=== PATIENT | male | born 1980 | race Two or more races ===

== ENCOUNTER 2022-05-21 17:22 | Emergency (ER) | payer OTHER ==
[~2022-05-21] VITALS: Ht 167.6 cm; Wt 99.8 kg
[2022-05-21] MEDS ORDERED: LOSARTAN-HCTZ1 EAC1 PO (18:27)
[2022-05-21] MEDS ORDERED: ATORVASTATIN CA40 MG PO (18:28)
[2022-05-21] MEDS ORDERED: VITAMIN D3 COM1 EACH PO (18:28)
[2022-05-21] MEDS ORDERED: FENOFIBRATE54 MG PO (18:28)
[2022-05-21] MEDS ORDERED: AMLODIPINE BESYL5 MG PO (18:28)
[2022-05-21] MEDS ORDERED: ZITHROMAX500 MG PO (22:00)
[2022-05-21] MEDS ORDERED: DEXAMETHASONE4 MG PO (22:02)
== END 2022-05-21 22:26 | disposition home or self-care (01) ==
LOC: ER 17:22
DX: B34.9 Viral infection, unspecified (principal); J45.909 Unspecified asthma, uncomplicated; I10 Essential (primary) hypertension; Z88.0 Allergy status to penicillin; Z20.822 Contact with and (suspected) exposure to COVID-19

== ENCOUNTER 2024-12-27 23:09 | Emergency (ER) | payer OTHER ==
[~2024-12-27] VITALS: Ht 175.3 cm; Wt 99.8 kg
[~2024-12-27 23:09] MED LIST: AMLODIPINE BESYL5 MG PO; ATORVASTATIN CA40 MG PO; DEXAMETHASONE4 MG PO; FENOFIBRATE54 MG PO; LOSARTAN-HCTZ1 EAC1 PO; VITAMIN D3 COM1 EACH PO; ZITHROMAX500 MG PO
[2024-12-28] MEDS ORDERED: FAMOTIDINE/PF 20 MG/2 ML VIAL IV PUSH STA (00:44)
[2024-12-28] MEDS ORDERED: PROMETHAZINE HCL 50 MG/ML AMPUL IM STA (00:44)
[2024-12-28] MEDS ORDERED: 0.9 % SODIUM CHLORIDE 1,000 ML IV ONE (00:45)
[2024-12-28] MEDS ORDERED: FAMOTIDINE/PF 20 MG/2 ML VIAL ONE (00:45)
[2024-12-28] MEDS ORDERED: PROMETHAZINE HCL 50 MG/ML AMPUL IM ONE (00:45)
[2024-12-28 01:38] LABS: BASO % 0.6 % (0.1-1.2); EOS # 0.01 (0.04-0.54); EOS % 0.1 % (0.7-7.0); LYMPH # 2.68 (1.18-3.74); LYMPH % 18.5 % (19.3-53.1); MEAN PLATELET VOLUME 10.50 fl (9.4-12.4); MONO # 0.97 (0.24-0.82); MONO % 6.7 % (4.7-12.5); NEUT # 10.67 (1.56-6.13); NEUT % 73.8 % (34.0-71.1); RED CELL DISTRIBUTION WIDTH 12.7 % (11.6-14.4)
[2024-12-28 01:51] LABS: URINE APPEARANCE Clear; URINE BILIRRUBIN Negative (NEGATIVE); URINE BLOOD Negative; URINE COLOR Yellow; URINE KETONE Negative (NEGATIVE); URINE LEUKOCYTE Negative; URINE NITRATE Negative; URINE PROTEIN 30 (NEGATIVE); URINE UROBILINOGEN 0.2 E.U./dl
[2024-12-28 01:55] LABS: URINE BACTERIA 8.3 uL (0.0-1933); URINE EPITHELIAL CELLS 2.6 uL (0.0-38.8); URINE RBC 7.6 uL (0.0-20.8); URINE WBC 8.4 uL (0.0-23.2)
[2024-12-28 02:17] LABS: URINE CAST 0.14 uL (0.0-1.40); URINE GLUCOSE 250 MG/DL (NEGATIVE)
[2024-12-28] MEDS ORDERED: MORPHINE SULFATE 4 MG/ML VIAL IV STA ×2 (02:24→06:21)
[2024-12-28 02:31] LABS: ALT/SGPT 30.0 U/L (12-78); AST/SGOT 16.0 U/L (15-37); BILIRUBIN TOTAL 0.57 mg/dL (0.3-1.2); BUN CREA RATIO 11.0 (7.0-25.0); CREATININE SERUM 1.09 mg/dL (0.70-1.30); GFR 72.83; GLOBULINA 3.8 G/DL (2.4-3.5); GLUCOSE FASTING 111.0 mg/dL (65-100); OSMOLALITY SERUM 285.0 MOSM/KG (275-295)
[2024-12-28] MEDS ORDERED: BARIUM SULFATE 450 ML ORAL.SUSP PO ONE (02:44)
[2024-12-28] MEDS ORDERED: METRONIDAZOLE/SODIUM CHLORIDE 500 MG/100 ML PIGGYBACK IV STA (07:30)
[2024-12-28] MEDS ORDERED: METRONIDAZOLE/SODIUM CHLORIDE 500 MG/100 ML PIGGYBACK IV ONE (07:33)
[2024-12-28] MEDS ORDERED: LOSARTAN/HYDROCHLOROTHIAZIDE 1 TAB TABLET PO STA (07:58)
[2024-12-28 08:52] LABS: BASO % 0.6 % (0.1-1.2); EOS # 0.06 (0.04-0.54); EOS % 0.5 % (0.7-7.0); LYMPH # 2.67 (1.18-3.74); LYMPH % 21.6 % (19.3-53.1); MEAN PLATELET VOLUME 10.30 fl (9.4-12.4); MONO # 1.04 (0.24-0.82); MONO % 8.4 % (4.7-12.5); NEUT # 8.49 (1.56-6.13); NEUT % 68.7 % (34.0-71.1); RED CELL DISTRIBUTION WIDTH 12.7 % (11.6-14.4)
[2024-12-28] MEDS ORDERED: TAMS0.4C PO (09:35)
[2024-12-28] MEDS ORDERED: BACTRIM DS TAB1 EACH PO (09:35)
[2024-12-28] MEDS ORDERED: PEPCID AC20 MG PO (09:35)
== END 2024-12-28 10:04 | disposition home or self-care (01) ==
LOC: ER 23:18
PROVIDERS: General Practice
DX: N20.0 Calculus of kidney (principal); I10 Essential (primary) hypertension; Z88.0 Allergy status to penicillin

== ENCOUNTER 2025-03-28 03:10 | Emergency (ER) | payer OTHER ==
[~2025-03-28] VITALS: Ht 175.3 cm; Wt 97.5 kg
[~2025-03-28 03:10] MED LIST changes: +BACTRIM DS TAB1 EACH PO; +PEPCID AC20 MG PO; +TAMS0.4C PO
[2025-03-28] MEDS ORDERED: FARXIGA5 MG PO (03:42)
[2025-03-28] MEDS ORDERED: EZALLOR SPRINKL10 MG PO (03:42)
[2025-03-28] MEDS ORDERED: KETOROLAC TROMETHAMINE 30 MG VIAL ONE (04:28)
[2025-03-28] MEDS ORDERED: ONDANSETRON HCL 2 MG/ML VIAL ONE (04:29)
[2025-03-28] MEDS ORDERED: LACTOBACILLUS ACIDOPHILUS 1 CAP CAP PO ONE ×2 (04:29→04:30)
[2025-03-28] MEDS ORDERED: KETOROLAC TROMETHAMINE 15 MG VIAL IU ONE (04:30)
[2025-03-28] MEDS ORDERED: FAMOTIDINE/PF 20 MG/2 ML VIAL ONE (04:30)
[2025-03-28] MEDS ORDERED: ONDANSETRON HCL 4 MG in 0.9 % SODIUM CHLORIDE 50 ML IV ONE (04:30)
[2025-03-28] MEDS ORDERED: 0.9 % SODIUM CHLORIDE 1,000 ML IV SCH (04:30)
[2025-03-28] MEDS ORDERED: FAMOtidine 10 MG/ML (4ML VIAL) IV PUSH ONE (04:30)
[2025-03-28 05:36] LABS: BASO % 0.4 % (0.1-1.2); EOS # 0.00 (0.04-0.54); EOS % 0.0 % (0.7-7.0); LYMPH # 1.88 (1.18-3.74); LYMPH % 16.8 % (19.3-53.1); MEAN PLATELET VOLUME 10.50 fl (9.4-12.4); MONO # 0.67 (0.24-0.82); MONO % 6.0 % (4.7-12.5); NEUT # 8.61 (1.56-6.13); NEUT % 76.6 % (34.0-71.1); RED CELL DISTRIBUTION WIDTH 13.2 % (11.6-14.4)
[2025-03-28 05:41] LABS: ERYTHROCYTE SEDIMENTATION RATE 12 mm/hr (0-15)
[2025-03-28 05:54] LABS: COVID-19 AG NEGATIVE (NEGATIVE)
[2025-03-28 06:04] LABS: ALT/SGPT 35.0 U/L (12-78); AST/SGOT 18.0 U/L (15-37); BILIRUBIN TOTAL 0.7 mg/dL (0.3-1.2); BUN CREA RATIO 17.0 (7.0-25.0); CREATININE SERUM 0.94 mg/dL (0.70-1.30); GFR 86.4; GLOBULINA 3.0 G/DL (2.4-3.5); GLUCOSE FASTING 103.0 mg/dL (65-100); OSMOLALITY SERUM 288.0 MOSM/KG (275-295)
[2025-03-28] MEDS ORDERED: DICY20TA PO (06:48)
[2025-03-28] MEDS ORDERED: INTESTINEX680 M1 PO (06:48)
[2025-03-28] MEDS ORDERED: PEPCID AC20 MG PO (06:48)
== END 2025-03-28 07:21 | disposition home or self-care (01) ==
LOC: ER 03:10
PROVIDERS: General Practice
DX: K52.89 Other specified noninfective gastroenteritis and colitis (principal); I10 Essential (primary) hypertension; E78.49 Other hyperlipidemia; Z88.0 Allergy status to penicillin; Z20.822 Contact with and (suspected) exposure to COVID-19